=== PATIENT | male | born 1940 | race Asian ===

== ENCOUNTER 2020-09-01 14:47 | Inpatient (IN) | payer OTHER ==
--- OUTSIDE RECORDS SUMMARY | 2020-09-01 14:53 | XMS REPORT | Continuity of Care Document ---
:1940 Author Organization [facility] t Address [address] [place] [address] [place] [address] Care Team Providers Name Role Phone [phone] Primary Care Physician Unavailable SYSTEM, NOT IN Attending Clinician Unavailable MICHAELA Attending Clinician Unavailable Mandi JENKINS Attending Clinician Unavailable TINO BURT Attending Clinician Unavailable LATRICIA Attending Clinician Unavailable Mandi WORKMAN Attending Clinician Unavailable VACNE Attending Clinician Unavailable VIC Attending Clinician Unavailable TORIBIO Attending Clinician Unavailable WENDI Attending Clinician Unavailable HARRIET Attending Clinician Unavailable García SMITH Attending Clinician Unavailable MAGEN Attending Clinician Unavailable Ina ARGUETA Attending Clinician Unavailable BASSEM Attending Clinician Unavailable KIMMY SAMANO Attending Clinician Unavailable Tyree DELGADO Attending Clinician Unavailable PETERSON Attending Clinician Unavailable DUNOG Attending Clinician Unavailable BEAU Attending Clinician Unavailable HEIDY Attending Clinician Unavailable RAJINDER Attending Clinician Unavailable Mandi COLON Attending Clinician Unavailable MEJIA Attending Clinician Unavailable TINO BURT Admitting Clinician Unavailable Payers Payer Name Policy Type Policy Number Effective Date Expiration Date S pablo [facility] MEDICARE [id number] 2015 ADVANTAGE 00:00:00 Problems This patient has no known problems. Allergies, Adverse Reactions, Alerts This patient has no known allergies or adverse reactions. Medications This patient has no known medications. Vital Signs Vital Name Observation Time Observation Value Comments Source WEIGHT 2020-08-13 10:51:03 54.9 kg WEIGHT 2020-08-13 08:35:50 54.7 kg WEIGHT 2020-07-30 12:39:00 54.2 kg WEIGHT 2020-07-30 08:46:00 53.6 kg WEIGHT 2020-07-15 13:23:59 54.1 kg WEIGHT 2020-07-02 12:12:22 53.3 kg WEIGHT 2020-06-18 11:26:39 53.6 kg WEIGHT 2020-06-18 08:13:24 53 kg WEIGHT 2020-06-03 15:10:51 53.2 kg WEIGHT 2020-06-03 10:54:57 52.9 kg WEIGHT 2020-05-20 11:42:00 52.1 kg WEIGHT 2020-05-07 07:39:34 49.8 kg HEIGHT 2020-05-06 19:11:00 167 cm WEIGHT 2020-04-08 15:13:43 51.5 kg HEIGHT 2020-04-08 09:51:45 167 cm WEIGHT 2020-04-08 09:51:45 51.5 kg WEIGHT 2020-03-26 13:26:11 51.5 kg HEIGHT 2020-03-26 08:39:39 167 cm WEIGHT 2020-03-26 08:39:39 51.5 kg WEIGHT 2020-03-11 11:42:33 51.4 kg WEIGHT 2020-02-27 14:33:57 51.8 kg WEIGHT 2020-02-12 16:30:22 51.6 kg WEIGHT 2020-02-12 11:16:26 51.7 kg WEIGHT 2020-01-30 13:01:00 54.6 kg WEIGHT 2020-01-30 08:40:00 54.3 kg WEIGHT 2020-01-16 13:28:41 55.8 kg WEIGHT 2020-01-01 08:05:49 60.2 kg WEIGHT 2019-12-29 08:46:00 58.7 kg HEIGHT 2019-12-25 12:37:37 167 cm WEIGHT 2019-12-15 08:13:42 56.5 kg HEIGHT 2019-12-10 17:00:00 167 cm WEIGHT 2019-12-05 11:19:07 54.8 kg WEIGHT 2019-12-05 08:17:06 55.2 kg WEIGHT 2019-11-27 08:21:57 54.7 kg WEIGHT 2019-11-19 08:00:00 53.7 kg WEIGHT 2019-11-06 14:10:34 53.4 kg WEIGHT 2019-10-23 10:37:19 53.4 kg WEIGHT 2019-10-09 10:37:34 54.8 kg HEIGHT 2019-10-09 08:56:53 167 cm WEIGHT 2019-10-09 08:56:53 54 kg WEIGHT 2019-09-25 10:51:35 54 kg WEIGHT 2019-09-11 13:06:50 54.7 kg WEIGHT 2019-08-28 00:00:00 56 kg WEIGHT 2019-08-28 00:00:00 56 kg WEIGHT 2019-08-21 00:00:00 55.6 kg Procedures This patient has no known procedures. Encounters Start End Encounter Admission Attending Care Care Encounter Source Date/Time Date/Time Type Type Clinicians Facility Department ID 2020-01-22 Outpatient SYSTEM, MDA MDA [id number] 13:04:15 CARIE bragg 2020-08-27 2020-08-27 Outpatient JELANI JENNINGS, MDA MDA [id number] 09:14:23 23:59:00 JUVENAL bragg 2020-08-27 2020-08-27 Outpatient JELANI JENKINS, MDA MDA [id number] 07:48:18 11:03:21 KANA bragg 2020-08-27 2020-08-27 Outpatient JELANI JENKINS, MDA MDA [id number] 06:15:00 09:13:00 KANA bragg 2020-08-13 2020-08-13 Outpatient JELANI JENNINGS, MDA MDA [id number] 09:36:13 23:59:00 JUVENAL bragg 2020-08-13 2020-08-13 Outpatient JELANI JENKINS, MDA MDA [id number] 08:21:06 12:23:15 KANA bragg 2020-08-13 2020-08-13 Outpatient JELANI JENKINS, MDA MDA [id number] 06:15:00 09:35:00 KANA bragg 2020-07-30 2020-07-30 Outpatient JELANI JENNINGS, MDA MDA [id number] 09:00:00 23:59:00 JUVENAL bragg 2020-07-30 2020-07-30 Outpatient JELANI BURT, MDA MDA [id number] 08:42:59 10:52:59 KACY bragg 2020-07-30 2020-07-30 Outpatient JELANI JENKINS, MDA MDA [id number] 06:15:00 08:59:00 KANA bragg 2020-07-15 2020-07-15 Outpatient JELANI JENNINGS, MDA MDA [id number] 12:00:00 23:59:00 JUVENAL bragg 2020-07-15 2020-07-15 Outpatient REGINA SANFORD MDA MDA [id number] MD 10:40:50 12:06:04 Agus bragg 2020-07-15 2020-07-15 Outpatient REGINA SANFORD MDA MDA [id number] 10:52:13 11:59:00 Agus bragg 2020-07-15 2020-07-15 Outpatient JELANI BURT, MDA MDA [id number] MD 08:00:00 10:51:00 KACY bragg 2020-07-15 2020-07-15 Outpatient JELANI BURT, MDA MDA [id number] MD 08:24:11 08:24:11 KACY bragg 2020-07-02 2020-07-02 Outpatient JELANI JENNINGS, MDA MDA [id number] 10:12:30 23:59:00 JUVENAL bragg 2020-07-02 2020-07-02 Outpatient JELANI BURT, MDA MDA [id number] MD 08:29:20 11:45:52 KACY bragg 2020-07-02 2020-07-02 Outpatient JELANI BURT, MDA MDA [id number] MD 07:00:00 10:11:00 KACY bragg 2020-06-18 2020-06-18 Outpatient JELANI JENKINS, MDA MDA [id number] 09:01:37 23:59:00 KANA bragg 2020-06-18 2020-06-18 Outpatient JELANI BURT, MDA MDA [id number] MD 07:49:20 12:29:42 KACY bragg 2020-06-18 2020-06-18 Outpatient JELANI BURT, MDA MDA [id number] MD 07:00:00 09:00:00 KACY bragg 2020-06-03 2020-06-03 Outpatient JELANI JENNINGS, MDA MDA [id number] 14:14:13 23:59:00 JUVENAL bragg 2020-06-03 2020-06-03 Outpatient JELANI JENKINS, MDA MDA [id number] 09:47:36 14:13:00 KANA bragg 2020-06-03 2020-06-03 Outpatient JELANI BURT, MDA MDA [id number] MD 09:49:18 14:02:01 KACY bragg 2020-05-20 2020-05-20 Outpatient COATS-LU, MDA MDA [id number] 10:29:06 23:59:00 JUVENAL bragg 2020-05-20 2020-05-20 Outpatient JELANI JENKINS, MDA MDA [id number] 08:33:24 10:28:00 KANA bragg 2020-05-20 2020-05-20 Outpatient JELANI JENKINS, MDA MDA [id number] 08:33:04 08:33:04 KANA bragg 2020-05-06 2020-05-07 Outpatient ER JI, MDA Leukemia [id number] MD 09:22:00 16:00:00 SAURABH bragg 2020-05-07 2020-05-07 Outpatient JI, MDA MDA [id number] MD 00:15:52 00:28:43 SAURABH bragg 2020-05-06 2020-05-06 Outpatient JELANI BURT, MDA MDA [id number] MD 08:09:42 09:21:00 KACY bragg 2020-05-06 2020-05-06 Outpatient JAVED, MDA MDA [id number] MD 08:08:58 08:08:58 KACY bragg 2020-04-30 2020-04-30 Outpatient JAVED, MDA MDA [id number] MD 13:43:47 16:16:08 KACY bragg 2020-04-23 2020-04-23 Outpatient JOHNBLADE MDA MDA [id number] MD 10:49:43 23:59:00 Agus HAMLIN 2020-04-23 2020-04-23 Outpatient JAVED, MDA MDA [id number] MD 10:48:53 10:48:53 KACY bragg 2020-04-23 2020-04-23 Outpatient JELANI BURT, MDA MDA [id number] MD 06:15:00 10:48:00 KACY Goldsmith o n 2020-04-09 2020-04-09 Outpatient JELANI HO, MDA MDA [id number] MD 16:10:23 16:29:24 NIESHA Goldsmith o n 2020-04-08 2020-04-08 Outpatient ALICE, MDA MDA [id number] MD 14:10:47 23:59:00 KANA Goldsmith o n 2020-04-08 2020-04-08 Outpatient JELANI BURT, MDA MDA [id number] MD 09:46:47 14:25:12 KACY Goldsmith o n 2020-04-08 2020-04-08 Outpatient JELANI BURT, MDA MDA [id number] MD 08:22:16 14:09:00 KACY Goldsmith o n 2020-04-08 2020-04-08 Outpatient JAVED, MDA MDA [id number] MD 08:21:12 14:07:05 KACY Goldsmith o n 2020-04-08 2020-04-08 Outpatient JAVED, MDA MDA [id number] MD 08:21:55 08:21:55 KACY Goldsmith o n 2020-03-26 2020-03-26 Outpatient TORIBIO, MDA MDA [id number] MD 10:00:55 23:59:00 KAVITHA Rinaldi so n 2020-03-26 2020-03-26 Outpatient JAVED, MDA MDA [id number] MD 08:27:10 11:11:33 KACY Goldsmith o n 2020-03-26 2020-03-26 Outpatient JAVED, MDA MDA [id number] MD 07:30:00 09:59:00 KACY Goldsmith o yemi 2020-03-11 2020-03-11 Outpatient WENDI, MDA MDA [id number] MD 09:34:53 23:59:00 JOSE Goldsmith o yemi 2020-03-11 2020-03-11 Outpatient JAVED, MDA MDA [id number] MD 08:07:06 09:33:00 KACY Goldsmith o n 2020-03-11 2020-03-11 Outpatient EL JAVED, MDA MDA [id number] MD 08:07:34 08:07:34 KACY Morenoers o n 2020-02-27 2020-02-27 Outpatient EL HARRIET, MDA MDA [id number] MD 09:33:34 23:59:00 RESTORATIONIST Ande tasha bragg 2020-02-27 2020-02-27 Outpatient EL JAVED, MDA MDA [id number] 06:45:00 09:32:00 KACY Morenoers o n 2020-02-27 2020-02-27 Outpatient EL JAVED, MDA MDA [id number] 08:08:10 09:25:54 KACY Morenoers o yemi 2020-02-12 2020-02-12 Outpatient EL ALICE, MDA MDA [id number] MD 13:00:35 23:59:00 KANA bragg 2020-02-12 2020-02-12 Outpatient EL JAVED, MDA MDA [id number] 11:06:39 12:59:00 KACY Morenoers o n 2020-02-12 2020-02-12 Outpatient EL JAVED, MDA MDA [id number] 11:07:10 12:52:29 KACY Morenoers o yemi 2020-01-30 2020-01-30 Outpatient EL LUIS, MDA MDA [id number] MD 10:22:43 23:59:00 RUY bragg 2020-01-30 2020-01-30 Outpatient EL JAVED, MDA MDA [id number] 08:30:33 10:38:25 KACY Morenoers o yemi 2020-01-30 2020-01-30 Outpatient EL JAVED, MDA MDA [id number] 08:00:00 10:21:00 KACY Morenoers rosmery bragg 2020-01-16 2020-01-16 Outpatient EL OCTAVIO US MDA MDA [id number] 10:10:09 23:59:00 Agus rosmery bragg 2020-01-16 2020-01-16 Outpatient EL JOHN-BLADE MDA MDA [id number] 08:08:48 10:22:37 TTAgus HOLLOWAY 2020-01-16 2020-01-16 Outpatient EL JAVED, MDA MDA [id number] 07:00:00 10:09:00 KACY Agus o n 2020-01-04 2020-01-04 Outpatient JELANI ARGUETA, MDA MDA [id number] MD 14:28:58 23:59:00 EVELYN Goldsmith o n 2020-01-04 2020-01-04 Outpatient REGINA SANFORD MDA MDA [id number] 13:00:39 14:59:01 Agus rosmery bragg 2020-01-01 2020-01-01 Outpatient JELANI JENKINS, MDA MDA [id number] MD 07:15:00 23:59:00 KANA Agus o n 2020-01-01 2020-01-01 Outpatient EL JAVED, MDA MDA [id number] MD 07:15:45 09:49:32 KACY Agus o n 2019-12-25 2019-12-30 Inpatient UR BASSEM, MDA Leukemia [id number] MD 12:24:00 15:12:00 DONYA botello n 2019-12-25 2019-12-25 Outpatient EL ALICE, MDA MDA [id number] MD 07:30:00 12:23:00 KANA Agus o n 2019-12-25 2019-12-25 Outpatient EL JAVED, MDA MDA [id number] MD 10:13:21 10:13:21 KACY Agus o n 2019-12-25 2019-12-25 Outpatient EL JAVED, MDA MDA [id number] MD 09:34:34 09:34:34 KACY Agus o n 2019-12-25 2019-12-25 Outpatient EL ALICE, MDA MDA [id number] MD 07:46:17 07:46:17 KANA Agus o n 2019-12-10 2019-12-15 Inpatient UR [facility] MDA Leukemia [id number] MD 16:38:00 16:32:00 Agus SAMANO 2019-12-15 2019-12-15 Inpatient UR JAVED, MDA MDA [id number] MD 11:22:10 11:22:13 KACY Morenoers o n 2019-12-11 2019-12-11 Inpatient UR JAVED, MDA MDA [id number] MD 10:16:33 10:16:35 KACY Morenoers o n 2019-12-10 2019-12-10 Outpatient EL DELGADO, MDA MDA [id number] MD 14:29:21 16:37:00 PENELOPE Goldsmith o n 2019-12-10 2019-12-10 Outpatient EL GEPPNER, MDA MDA [id number] MD 09:30:00 14:28:00 KANA Goldsmith o n 2019-12-10 2019-12-10 Outpatient EL GEPPNER, MDA MDA [id number] MD 11:17:36 11:17:36 KANA Goldsmith o n 2019-12-10 2019-12-10 Outpatient EL DELGADO, MDA MDA [id number] MD 08:00:00 09:29:00 PENELOPE Goldsmith o n 2019-12-05 2019-12-05 Outpatient EL DAEATORA, MDA MDA [id number] MD 10:29:45 23:59:00 KAVITHA Rinaldi so yemi 2019-12-05 2019-12-05 Outpatient EL JAVED, MDA MDA [id number] MD 07:00:00 10:28:00 KACY Goldsmith o n 2019-12-05 2019-12-05 Outpatient EL JAVED, MDA MDA [id number] MD 08:08:08 10:04:42 KACY Morenoers o n 2019-12-04 2019-12-04 Outpatient EL JAVED, MDA MDA [id number] MD 00:00:00 00:00:00 KACY Goldsmith o n 2019-12-04 2019-12-04 Outpatient EL JAVED, MDA MDA [id number] MD 00:00:00 00:00:00 KACY Goldsmith o n 2019-11-27 2019-11-27 Outpatient EL GEPPNER, MDA MDA [id number] MD 12:49:39 23:59:00 KANA Goldsmith o yemi 2019-11-27 2019-11-27 Outpatient EL JOSE D WINKLER MDA MDA [id number] 07:15:00 12:48:00 Agus bragg 2019-11-27 2019-11-27 Outpatient EL GEPPNER, MDA MDA [id number] MD 10:13:30 10:13:30 KANA Goldsmith o n 2019-11-27 2019-11-27 Outpatient EL JAVED, MDA MDA [id number] MD 08:10:52 09:55:38 KACY Goldsmith o yemi 2019-11-20 2019-11-20 Outpatient JAVED, MDA MDA [id number] MD 00:00:00 00:00:00 KACY Agus o n 2019-11-20 2019-11-20 Outpatient JAVED, MDA MDA [id number] MD 00:00:00 00:00:00 KACY Agus o n 2019-11-12 2019-11-19 Inpatient ER MASAROVA, MDA Leukemia [id number] MD 10:11:00 17:45:00 LENORA Agus o n 2019-11-13 2019-11-13 [facility] MDA [id number] MD 12:10:28 12:42:16 LENORA Agus o n 2019-11-13 2019-11-13 Inpatient BEAU, MDA MDA [id number] MD 00:11:02 00:19:32 HENRRY Agus o n 2019-11-12 2019-11-12 Inpatient BEAU, MDA MDA [id number] MD 19:42:31 20:31:36 HENRRY Agus o n 2019-11-06 2019-11-06 Outpatient EL HEIDY, MDA MDA [id number] MD 11:01:28 23:59:00 AUSTINMEGA Camarena rso n 2019-11-06 2019-11-06 Outpatient EL JAVED, MDA MDA [id number] MD 07:38:12 11:00:00 KACY Agus o n 2019-11-06 2019-11-06 Outpatient EL JAVED, MDA MDA [id number] MD 07:37:50 07:37:50 KACY Agus o n 2019-10-23 2019-10-23 Outpatient EL ALDAER, MDA MDA [id number] MD 09:25:50 23:59:00 IMTIAZ Agus o n 2019-10-23 2019-10-23 Outpatient EL JAVED, MDA MDA [id number] MD 07:28:13 09:24:00 KACY Agus o n 2019-10-23 2019-10-23 Outpatient EL JAVED, MDA MDA [id number] MD 07:27:55 07:27:55 KACY Agus o n 2019-10-09 2019-10-09 Outpatient EL JAVED, MDA MDA [id number] MD 07:33:20 23:59:00 KACY Goldsmith o n 2019-10-09 2019-10-09 Outpatient JAVED, MDA MDA [id number] MD 07:33:42 11:35:48 KACY Morenoers o n 2019-10-09 2019-10-09 Outpatient JAVED, MDA MDA [id number] MD 08:09:20 10:33:22 KACY Morenoers o n 2019-10-08 2019-10-08 Outpatient JAVED, MDA MDA [id number] MD 07:15:48 07:15:48 KACY Morenoers o n 2019-10-08 2019-10-08 Outpatient JAVED, MDA MDA [id number] MD 07:01:34 07:06:05 KACY Morenoers o yemi 2019-09-25 2019-09-25 Outpatient COLON, MDA MDA [id number] MD 10:13:12 23:59:00 CORNELIUS Goldsmith o yemi 2019-09-25 2019-09-25 Outpatient JAVED, MDA MDA [id number] MD 07:42:08 10:12:00 KACY Morenoers o n 2019-09-25 2019-09-25 Outpatient JAVED, MDA MDA [id number] MD 07:42:24 07:42:24 KACY Goldsmith o yemi 2019-09-11 2019-09-11 Outpatient COATS-LU, MDA MDA [id number] MD 09:36:47 23:59:00 JUVENAL Goldsmith o yemi 2019-09-11 2019-09-11 Outpatient JAVED, MDA MDA [id number] MD 07:35:34 09:35:00 KACY Morenoers o yemi 2019-09-11 2019-09-11 Outpatient JAVED, MDA MDA [id number] MD 07:34:47 07:34:47 KACY Morenoers o yemi 2019-08-28 2019-08-28 [facility] MDA [id number] MD 09:30:46 23:59:00 KANA Goldsmith o yemi 2019-08-28 2019-08-28 Outpatient JAVED, MDA MDA [id number] MD 06:54:38 09:29:00 KACY Morenoers o n 2019-08-28 2019-08-28 Outpatient JELANI BURT SHORTY MDA [id number] 06:54:24 09:23:45 KACY bragg 2019-08-21 2019-08-21 Outpatient JELANI MAGEN, OCTAVIO MDA MDA [id number] 07:34:06 23:59:00 Agus bragg 2019-08-21 2019-08-21 Outpatient JELANI MAGENOCTAVIO AMBROCIO MDA MDA [id number] 07:33:48 07:33:48 Agus bragg 2019 2019 Outpatient JELANI BURT SHORTY MDA [id number] 06:49:41 08:49:00 KACY bragg 2019-07-09 2019-07-09 Outpatient JELANI JOSEPHGALLITO PALOMARES MDA MDA [id number] 09:38:49 09:38:49 Agus bragg Results This patient has no known results.
[2020-09-01 15:30] LABS: Urine Blood Trace-intact (Negative); Urine Glucose Negative (Negative); Urine Protein 3+ (Negative)
[2020-09-01] MEDS ORDERED: NA CHLORIDE 0.9% 2,000 ML ONE (15:38)
[2020-09-01 15:46] LABS: Urine Bacteria NONE SEEN /HPF (NONE SEEN)
[2020-09-01 15:50] LABS: ALT/SGPT 109 U/L (12-78); AST/SGOT 78 U/L (15-37); Albumin 3.6 g/dL (3.4-5.0); Alkaline Phosphatase 124 U/L (45-117); Amylase 95 U/L (25-115); BUN Blood Urea Nitrogen 26 mg/dL (7-18); Bicarbonate 22 mmol/L (21-32); Bilirubin Direct 0.1 mg/dL (0-0.2); Bilirubin Total 0.4 mg/dL (0.2-1.0); Creatine Phosphokinase 30 U/L (39-308); Glucose Level 143 mg/dL (74-106); Lipase 111 U/L (73-393); Potassium 3.8 mmol/L (3.5-5.1); Protein, Total 6.7 g/dL (6.4-8.2); Sodium Level 142 mmol/L (136-145); Troponin (Emerg Dept Use Only) < 0.02 ng/mL (0.0-0.045)
--- NOTE | 2020-09-01 15:51 | RAD REPORT ---
EXAM DESCRIPTION: RAD - Chest Single View - 09/01/2020 3:22 pm CLINICAL HISTORY: fever;Malaise COMPARISON: Two view chest May 2010 TECHNIQUE: AP portable chest image was obtained 09/01/2020 3:22 pm . FINDINGS: Lung volumes are low. Patchy opacification in each lung base, right greater than left, is probably low lung volume atelectasis. Minimal right base infiltrate is possible and needs correlation with exam findings. Failure and volume overload are not suspected. Heart and vasculature are normal. No measurable pleural effusion and no pneumothorax. No acute bony abnormality seen. No acute aortic findings suspected. IMPRESSION: Atelectasis versus minimal infiltrate right lung base.
[2020-09-01 15:52] LABS: CKMB Creatine Kinase MB < 1.0 ng/mL (1.0-3.6)
[2020-09-01 15:56] LABS: Protime INR 1.09
[2020-09-01 15:57] LABS: Absolute Lymphocytes (CBC) 0.4 K/uL (0.7-4.9); Basophils % 1.4 % (0-1.3); Lymphocytes % 25.8 % (15.3-44.8); MPV 9.8 fL (7.6-11.3); RBC Red Blood Cell Count 2.79 M/uL (4.33-5.43)
--- NOTE | 2020-09-01 16:37 | EDPHYS ---
Physician Documentation [facility] Name: María Maldonado Age: 80 yrs Sex: Male : 1940 Arrival Date: 09/01/2020 Time: 14:49 Bed 3 Private MD: ED Physician Leonard Elizondo HPI: 09/01 16:26 This 80 yrs old Male presents to ER via EMS with complaints of Fever. abimael 16:26 The patient reports fever, that was measured at 100.4 degrees Fahrenheit. Onset: The abimale symptoms/episode began/occurred 2 day(s) ago. Modifying factors: there are no obvious modifying factors. Associated signs and symptoms: Pertinent positives: cough, runny nose, sinus congestion, shortness of breath. Severity of symptoms: At their worst the symptoms were mild yesterday, in the emergency department the symptoms are unchanged. The patient has not experienced similar symptoms in the past. Historical: - Allergies: 14:54 No Known Allergies; tw2 - Home Meds: 14:56 metoprolol succinate 50 mg oral CSpX 1 cap twice a day [Active]; nifedipine 60 mg Oral tw2 TbER 1 tab once daily [Active]; ruxolitinib 20 mg oral tab 1 tab 2 times per day [Active]; - PMHx: 14:56 hypertension; tw2 16:18 MDS; tw2 - Immunization history:: Adult Immunizations. - Social history:: Smoking status: . - Family history:: not pertinent. ROS: 16:26 Eyes: Negative for injury, pain, redness, and discharge, ENT: Negative for injury, abimael pain, and discharge, Neck: Negative for injury, pain, and swelling, Cardiovascular: Negative for chest pain, palpitations, and edema, Abdomen/GI: Negative for abdominal pain, nausea, vomiting, diarrhea, and constipation, Back: Negative for injury and pain, MS/Extremity: Negative for injury and deformity, Skin: Negative for injury, rash, and discoloration, Neuro: Negative for headache, weakness, numbness, tingling, and seizure, Psych: Negative for depression, anxiety, suicide ideation, homicidal ideation, and hallucinations, Allergy/Immunology: Negative for hives, rash, and allergies, Endocrine: Negative for neck swelling, polydipsia, polyuria, polyphagia, and marked weight changes, Hematologic/Lymphatic: Negative for swollen nodes, abnormal bleeding, and unusual bruising. 16:26 Constitutional: Positive for body aches, chills, fatigue, fever. 16:26 Cardiovascular: Positive for palpitations. 16:26 Respiratory: Positive for cough. 16:26 : Positive for urinary symptoms, urinary frequency, small amounts. 16:26 Skin: Positive for pallor. Exam: 16:26 Head/Face: Normocephalic, atraumatic. Eyes: Pupils equal round and reactive to light, abimael extra-ocular motions intact. Lids and lashes normal. Conjunctiva and sclera are non-icteric and not injected. Cornea within normal limits. Periorbital areas with no swelling, redness, or edema. ENT: Nares patent. No nasal discharge, no septal abnormalities noted. Tympanic membranes are normal and external auditory canals are clear. Oropharynx with no redness, swelling, or masses, exudates, or evidence of obstruction, uvula midline. Mucous membranes moist. Neck: Trachea midline, no thyromegaly or masses palpated, and no cervical lymphadenopathy. Supple, full range of motion without nuchal rigidity, or vertebral point tenderness. No Meningismus. Chest/axilla: Normal chest wall appearance and motion. Nontender with no deformity. No lesions are appreciated. Abdomen/GI: Soft, non-tender, with normal bowel sounds. No distension or tympany. No guarding or rebound. No evidence of tenderness throughout. Back: No spinal tenderness. No costovertebral tenderness. Full range of motion. MS/ Extremity: Pulses equal, no cyanosis. Neurovascular intact. Full, normal range of motion. Neuro: Awake and alert, GCS 15, oriented to person, place, time, and situation. Cranial nerves II-XII grossly intact. Motor strength 5/5 in all extremities. Sensory grossly intact. Cerebellar exam normal. Normal gait. Psych: Awake, alert, with orientation to person, place and time. Behavior, mood, and affect are within normal limits. 16:26 Constitutional: The patient appears febrile. 16:26 Cardiovascular: Rate: tachycardic, Rhythm: regular, Heart sounds: normal, Edema: is not appreciated, JVD: is not appreciated. 16:26 Respiratory: mild respiratory distress is noted, Respirations: no acute changes, is not noted, Breath sounds: decreased breath sounds, that are mild, rhonchi, that are mild, Respiratory rate: 28 16:26 Abdomen/GI: Inspection: abdomen appears normal, Bowel sounds: normal, Palpation: abdomen is soft and non-tender, Liver: no appreciated palpable abnormalities, Hernia: not appreciated. 16:36 ECG was reviewed by the Attending Physician. [facility] Vital Signs: 14:51 BP 141 / 60; Pulse 95; Resp 20; Temp 100.3; Pulse Ox 98% on 3 lpm NC; tw2 15:11 Weight 61.23 kg (R); Height 5 ft. 7 in. (170.18 cm); tw2 16:17 BP 124 / 92; Pulse 102; Resp 28; Pulse Ox 100% on 2 lpm NC; tw2 17:05 BP 133 / 56; Pulse 99; Resp 19; Pulse Ox 95% on 2 lpm NC; tw2 17:57 Temp 100.5(O); tw2 20:00 Pulse 112; Resp 16; Temp 99.8(O); Pulse Ox 96% on 2 lpm NC; Pain 0/10; bs2 15:11 Body Mass Index 21.14 (61.23 kg, 170.18 cm) tw2 MDM: 15:12 Patient medically screened. [facility] 16:30 Differential diagnosis: viral Infection, bacterial infection, URI, pneumonia UTI. Data [facility] reviewed: vital signs, nurses notes, lab test result(s), EKG, radiologic studies, CT scan, plain films. Data interpreted: community engagement specialist: rate is 102 beats/min, rhythm is regular, Pulse oximetry: on room air is 100 %. Test interpretation: by ED physician or midlevel provider: ECG, plain radiologic studies. Counseling: I had a detailed discussion with the patient and/or guardian regarding: the historical points, exam findings, and any diagnostic results supporting the discharge/admit diagnosis, lab results, radiology results. 19:38 Physician consultation: Anuj Diaz and will see patient in ED, ASKED , CANCEL abimael TRANSFUSIONS, DR DIAZ SAID HE WILL COORDINATE WITH DR CHAIREZ. 09/01 15:04 Order name: Amylase, Serum 09/01 15:04 Order name: Basic Metabolic Panel 09/01 15:04 Order name: Blood Culture Adult (2) 09/01 15:04 Order name: CBC with Diff 09/01 15:04 Order name: CPK; Complete Time: 16:12 09/01 15:04 Order name: Ckmb; Complete Time: 16:12 09/01 15:04 Order name: LFT's; Complete Time: 16:12 09/01 15:04 Order name: Lactate; Complete Time: 16:12 09/01 15:04 Order name: Lipase; Complete Time: 16:12 09/01 15:04 Order name: Procalcitonin; Complete Time: 18:50 09/01 15:04 Order name: Protime (+inr); Complete Time: 16:12 09/01 15:04 Order name: Ptt, Activated; Complete Time: 16:12 09/01 15:04 Order name: Troponin (emerg Dept Use Only); Complete Time: 16:12 09/01 15:04 Order name: Urine Microscopic Only; Complete Time: 16:12 09/01 15:05 Order name: Amylase; Complete Time: 16:12 EDUT 09/01 15:05 Order name: Basic Metabolic Panel; Complete Time: 16:12 EDUT 09/01 15:05 Order name: Blood Culture [facility] 09/01 15:24 Order name: Glucose, Ancillary Testing; Complete Time: 16:12 EDUT 09/01 15:30 Order name: Urine Dipstick-Ancillary [facility] 09/01 16:14 Order name: Type And Screen [facility] 09/01 16:27 Order name: Flu 1 09/01 16:27 Order name: Strep em1 09/01 16:37 Order name: COVID-19/FLU A+B; Complete Time: 18:50 EDUT 09/01 16:42 Order name: Manual Differential [facility] 09/01 16:44 Order name: SARS-COV-2 RT PCR; Complete Time: 18:50 EDUT 09/01 18:51 Order name: CDIFF [facility] 09/01 18:51 Order name: Stool Culture [facility] 09/01 18:51 Order name: Fecal Leukocyte Stain [facility] 09/01 15:04 Order name: Chest Single View XRAY; Complete Time: 16:12 09/01 15:04 Order name: Accucheck; Complete Time: 15:13 09/01 15:04 Order name: Cardiac monitoring; Complete Time: 15:13 09/01 15:04 Order name: EKG - Nurse/Tech; Complete Time: 15:13 09/01 15:04 Order name: IV Saline Lock - Large Bore; Complete Time: 15:13 iw 09/01 15:04 Order name: Labs collected and sent; Complete Time: 15:13 iw 09/01 15:04 Order name: O2 Per Protocol; Complete Time: 15:13 iw 09/01 15:04 Order name: O2 Sat Monitoring; Complete Time: 15:13 iw 09/01 15:04 Order name: Urine Dipstick-Ancillary (obtain specimen); Complete Time: 15:33 iw 09/01 16:38 Order name: Bladder Scanner: NOTE PVR abimael 09/01 18:51 Order name: Occult Blood abimael 09/01 19:14 Order name: Lactate Sepsis 2 HR Follow-up; Complete Time: 19:35 EDMS 09/01 19:38 Order name: CT Chest Abdomen Pelvis W/O Contrast: NO IV NO ORAL abimael 09/01 19:39 Order name: IV Saline Lock - Large Bore [facility] 09/01 20:05 Order name: Occult Blood EDMS 09/01 20:27 Order name: CT EDMS EC:36 Rate is 90 beats/min. Rhythm is regular. QRS [place] is Normal. AR interval is normal. QRS abimael interval is normal. QT interval is normal. No Q waves. T waves are Normal. No ST changes noted. Clinical impression: NSR w/ Non-specific ST/T Changes and No evidence of ischemia. Interpreted by me. Reviewed by me. Administered Medications: 15:20 Drug: NS 0.9% (30 ml/kg) 30 ml/kg Route: IV; Rate: bolus; Site: right wrist; tw2 18:35 Follow up: Response: No adverse reaction; IV Status: Completed infusion; IV Intake: tw2 2000ml 16:44 Drug: Pepcid (famotidine) 20 mg Route: IVP; Site: right wrist; tw2 17:10 Follow up: Response: No adverse reaction tw2 16:45 Drug: vancoMYCIN 1 grams Route: IVPB; Infused Over: 2 hrs; Site: right wrist; tw2 16:45 Drug: Tylenol 650 mg Route: PO; tw2 18:32 Follow up: Response: No adverse reaction tw2 17:05 Drug: Cefepime 2 grams {Note: IVP available only.} Route: IVPB; Rate: 200 ml/hr; tw2 Infused Over: 5 mins; Site: left wrist; 17:11 Follow up: Response: No adverse reaction; IV Status: Completed infusion; IV Intake: [id number] Disposition Summary: 09/01/20 16:36 Hospitalization Ordered Hospitalization Status: Inpatient Admission abimael Location: Telemetry/[facility] (Inpatient) abimael Condition: Fair abimael Problem: new abimael Symptoms: have improved abimael Bed/Room Type: Standard abimael Provider: Anuj Diaz(09/01/20 16:41) abimael Room Assignment: [facility](09/01/20 18:30) dw Diagnosis - Fever, unspecified abimael - Neutropenia, unspecified - MDS abimael - Anemia, unspecified abimael - Thrombocytopenia, unspecified abimael - Unspecified bacterial pneumonia - RIGHT LOWER abimael - Diarrhea, unspecified abimael - Severe sepsis without septic shock abimael Forms: - Medication Reconciliation Form abimael - SBAR form abimael Signatures: Dispatcher [employer] EDMS Lucille Rushing RN RN dw Anderson, Corey, MD MD cha Williams, Irene, RN RN iw Shama Cobb RN RN tw2 Corrections: (The following items were deleted from the chart) 15:41 15:27 CORONAVIRUS+MR.LAB.BRZ ordered. EDUT EDMS 16:41 16:36 Fadi Velazquez [facility] 16:42 16:38 Blood Transfusion Consent ordered. [facility] 16:45 16:25 CORONAVIRUS+MR.LAB.BRZ ordered. EDUT EDMS 18:30 16:36 abimael dw
--- NOTE | 2020-09-01 16:37 | ER ---
Nurse's Notes [facility] Name: María Maldonado Age: 80 yrs Sex: Male : 1940 Arrival Date: 09/01/2020 Time: 14:49 Bed 3 Private MD: Diagnosis: Fever, unspecified;Neutropenia, unspecified-MDS;Anemia, unspecified;Thrombocytopenia, unspecified;Unspecified bacterial pneumonia-RIGHT LOWER;Diarrhea, unspecified;Severe sepsis without septic shock Presentation: 09/01 14:51 Chief complaint: EMS states: reports that pt has not been eating or drinking for a tw2 few days, today began running fever and having chills. TMAX at home 103 while bundled in blankets, also c/o nausea w/ "dry heaves". Spo2 88% on RA, improved to 98% on 3L NC. Coronavirus screen: chills, fatigue, fever, vomiting. Client presents with at least one sign or symptom that may indicate coronavirus-19. Standard/surgical mask placed on the client. Ebola Screen: No symptoms or risks identified at this time. Initial Sepsis Screen: Does the patient meet any 2 criteria? No. Patient's initial sepsis screen is negative. Does the patient have a suspected source of infection? No. Patient's initial sepsis screen is negative. Risk Assessment: Do you want to hurt yourself or someone else? Patient reports no desire to harm self or others. 14:51 Method Of Arrival: EMS tw2 14:53 Onset of symptoms was September 01, 2020. tw2 14:53 Acuity: GRICELDA 3 tw2 Historical: - Allergies: 14:54 No Known Allergies; tw2 - Home Meds: 14:56 metoprolol succinate 50 mg oral CSpX 1 cap twice a day [Active]; nifedipine 60 mg Oral tw2 TbER 1 tab once daily [Active]; ruxolitinib 20 mg oral tab 1 tab 2 times per day [Active]; - PMHx: 14:56 hypertension; tw2 16:18 MDS; tw2 - Immunization history:: Adult Immunizations. - Social history:: Smoking status: . - Family history:: not pertinent. Screenin:07 Abuse screen: Denies threats or abuse. Nutritional screening: No deficits noted. tw2 Tuberculosis screening: No symptoms or risk factors identified. Fall Risk Secondary diagnosis (15 points) impaired mobility. Assessment: 14:50 General: Appears ill, Behavior is calm, cooperative, appropriate for age. Pain: Denies tw2 pain. Neuro: Level of Consciousness is awake, alert, obeys commands, Oriented to person, place, situation. Cardiovascular: Patient's skin is warm and dry. Respiratory: Airway is patent Respiratory effort is even, unlabored, Respiratory pattern is regular, symmetrical. GI: No signs and/or symptoms were reported involving the gastrointestinal system. : No signs and/or symptoms were reported regarding the genitourinary system. Urine is dark colored akash urine noted. Musculoskeletal: Range of motion: intact in all extremities. 15:14 Reassessment: pts son SEAN MALDONADO ph#[phone] Fatou Churchill at [address] ph#[phone] and has seen their team for past 8-10 years and has some form of a blood disorder like leukemia but he is not sure of the name and gets transfusion every 2 weeks or so. 17:40 Reassessment: pt has voided 3 times prior to bladder scan order, will scan once pt 2 urinates again, provider notified. Vital Signs: 14:51 BP 141 / 60; Pulse 95; Resp 20; Temp 100.3; Pulse Ox 98% on 3 lpm NC; tw2 15:11 Weight 61.23 kg (R); Height 5 ft. 7 in. (170.18 cm); tw2 16:17 BP 124 / 92; Pulse 102; Resp 28; Pulse Ox 100% on 2 lpm NC; tw2 17:05 BP 133 / 56; Pulse 99; Resp 19; Pulse Ox 95% on 2 lpm NC; tw2 17:57 Temp 100.5(O); tw2 20:00 Pulse 112; Resp 16; Temp 99.8(O); Pulse Ox 96% on 2 lpm NC; Pain 0/10; bs2 15:11 Body Mass Index 21.14 (61.23 kg, 170.18 cm) tw2 ED Course: 14:49 Patient arrived in ED. tw2 14:51 Bed in low position. Call light in reach. Adult w/ patient. athletic monitor on. Pulse tw2 ox on. NIBP on. 14:54 Triage completed. tw2 14:54 Arm band placed on Patient placed in an exam room. tw2 14:55 Shama Cobb, BRANDI is Primary Nurse. tw2 15:11 Leonard Elizondo MD is Attending Physician. abimael 15:22 Chest Single View XRAY In Process Unspecified. EDMS 15:33 Urine Microscopic Only Sent. tw2 16:32 Fadi Velazquez MD is Hospitalizing Provider. abimael 16:41 Anuj Onofre is Hospitalizing Provider. abimael 19:15 Report given to BRANDI [place] and BRANDI Romano. tw2 19:58 No provider procedures requiring assistance completed. Inserted saline lock: 20 gauge bs2 in left forearm, using aseptic technique. 19:59 Patient admitted, IV remains in place. bs2 19:59 CT Chest Abdomen Pelvis W/O Contrast: NO IV NO ORAL Sent. bs2 19:59 Amylase, Serum Sent. bs2 19:59 Basic Metabolic Panel Sent. bs2 19:59 Blood Culture Adult (2) Sent. bs2 Administered Medications: 15:20 Drug: NS 0.9% (30 ml/kg) 30 ml/kg Route: IV; Rate: bolus; Site: right wrist; tw2 18:35 Follow up: Response: No adverse reaction; IV Status: Completed infusion; IV Intake: tw2 2000ml 16:44 Drug: Pepcid (famotidine) 20 mg Route: IVP; Site: right wrist; tw2 17:10 Follow up: Response: No adverse reaction tw2 16:45 Drug: vancoMYCIN 1 grams Route: IVPB; Infused Over: 2 hrs; Site: right wrist; tw2 16:45 Drug: Tylenol 650 mg Route: PO; tw2 18:32 Follow up: Response: No adverse reaction tw2 17:05 Drug: Cefepime 2 grams {Note: IVP available only.} Route: IVPB; Rate: 200 ml/hr; tw2 Infused Over: 5 mins; Site: left wrist; 17:11 Follow up: Response: No adverse reaction; IV Status: Completed infusion; IV Intake: [id number] Intake: 17:11 IV: 10ml; Total: 10ml. tw2 18:35 IV: 2000ml; Total: 2010ml. tw2 Outcome: 16:36 Decision to Hospitalize by Provider. abimael 19:55 Admitted to bs2 19:55 Condition: stable 19:57 Admitted to Tele accompanied by nurse, via stretcher, room 406, with chart, Report bs2 called to RN for 406 20:41 Patient left the ED. bs2 Signatures: Dispatcher [employer] Leonard Guerrero MD MD cha Wise, Tara, RN RN Nancie Schuler bs2
[2020-09-01 16:43] LABS: Anisocytosis 1+; Blood Morphology Comment NOTED (NOT SEEN); Platelet Estimate ADEQ; Polychromasia 1+
[2020-09-01] MEDS ORDERED: ACETAMINOPHEN 325 MG TABLET ONE (16:54)
[2020-09-01] MEDS ORDERED: FAMOTIDINE 20 MG/2 ML VIAL IV ONE (16:54)
[2020-09-01] MEDS ORDERED: VANCOMYCIN/NS 1 gm 1 GM/250 ML BAG IVPB ONE (17:00)
[2020-09-01] MEDS ORDERED: CEFEPIME/SWI 2gm 2 GM/20 ML SYR IVP ONE (17:00)
--- NOTE | 2020-09-01 18:06 | P.HP ---
Certification for Inpatient Patient admitted to: Inpatient With expected LOS: >2 Midnights Practitioner: I am a practitioner with admitting privileges, knowledge of patient current condition, hospital course, and medical plan of care. Services: Services provided to patient in accordance with Admission requirements found in Title 42 Section 412.3 of the Code of Federal Regulations Patient History Date of Service: 09/01/20 Reason for admission: Fever and chills History of Present Illness: 80-year-old gentleman with a history of myelodysplastic syndrome was brought to the emergency department due to an episode of fever and chills at home. Per report patient has not been eating well for the past 4 days, and has been experiencing nausea and vomiting. No diarrhea reported. Blood work done in the emergency department demonstrates pancytopenia-all cell lines- neutropenia, with absolute neutrophil count of 500, anemia with hemoglobin of 7.6 and thrombocytopenia. Per report patient gets transfuse every 2 weeks. Chest x-ray demonstrated atelectasis versus minimal infiltrate. UA is negative for UTI. Patient not able to provide any history. He is admitted for further management. Allergies No Known Allergies Allergy (Unverified 09/01/20 18:40) - Past Medical/Surgical History -: Myelodysplastic syndrome -: Hypertension - Social History Alcohol use: No Place of Residence: Home Review of Systems is unable to be obtained Physical Examination - Physical Exam General: In no apparent distress, Cachectic, Confused, Other (Awake) HEENT: Atraumatic, Normocephalic, PERRLA, Mucous membr. moist/pink, Sclerae nonicteric Neck: Supple, 2+ carotid pulse no bruit, JVD not distended, No Thyromegaly Respiratory: Clear to auscultation bilaterally, Normal air movement Cardiovascular: No edema, Other (Tachycardia, regular rhythm) Gastrointestinal: Normal bowel sounds, Soft and benign, No tenderness Musculoskeletal: No swelling Integumentary: No erythema Neurological: Normal speech, Other (No focal motor deficit.) Lymphatics: No axilla or inguinal lymphadenopathy - Studies Laboratory Data (last 24 hrs) 09/01/20 15:20: PT 12.6 H, INR 1.09, APTT 27.6 09/01/20 15:20: WBC 1.40 L*, Hgb 7.8 L, Hct 23.0 L, Plt Count 136 L 09/01/20 15:20: Sodium 142, Potassium 3.8, BUN 26 H, Creatinine 1.09, Glucose 143 H, Total Bilirubin 0.4, AST 78 H, ALT 109 H, Alkaline Phosphatase 124 H, Amylase 95, Lipase 111 Assessment and Plan - Problems (Diagnosis) (1) Neutropenic fever Current Visit: Yes Status: Acute (2) Pneumonia Current Visit: Yes Status: Acute (3) Sepsis Current Visit: Yes Status: Acute (4) Myelodysplastic syndrome Current Visit: Yes Status: Acute - Plan Admit to the medical floor. UA with no evidence of UTI. Start broad-spectrum antibiotics-IV cefepime and vancomycin. Monitor CBC to follow WBC and platelet. PRBC transfusion p.r.n. for hemoglobin less than 7. Consult to hematology. Aggressive hydration with normal saline. Follow blood cultures. - Advance Directives Does patient have a Living Will: No Does patient have a Durable POA for Healthcare: No
[2020-09-01] MEDS ORDERED: NA CHLORIDE 0.9% 1,000 ML IV ONE (19:20)
--- NOTE | 2020-09-01 19:22 | P.INFCA ---
Sepsis Focused Assessment - Sepsis Screen Result Severe Sepsis: Positive Septic Shock: Negative - Evaluation Current stage of sepsis: Severe sepsis - Vital Signs Reviewed: Yes Temperature: 99.4 F Heart rate: 77 Blood Pressure: 104/61 Respiratory Rate: 21 O2 Sat by Pulse Oximetry: 95 - Examination Date exam was performed: 09/01/20 Time exam was performed: 19:10 Heart: Regular rate/rhythm, S1, S2 Lungs: Clear bilaterally Peripheral pulses: 2+ Slightly diminished Peripheral pulse location: Radial Capillary refill: <2 Seconds Skin examination: Not mottled
--- NOTE | 2020-09-01 20:26 | RAD REPORT ---
EXAM DESCRIPTION: CT - Chest Abd Pelvis Wo Con - 09/01/2020 7:53 pm CLINICAL HISTORY: DIARRHEA;Cough COMPARISON: COLON BARIUM ENEMA W AIR CONTRAST dated 05/24/2010; CHEST PA AND LAT 2 VIEW dated 05/23/19 11 TECHNIQUE: Axial 5 millimeter thick images of the chest, abdomen and pelvis were obtained without IV contrast. Oral contrast was administered. All CT scans are performed using dose optimization technique as appropriate and may include automated exposure control or mA/KV adjustment according to patient size. FINDINGS: No mass the lung parenchyma. No focal consolidation to suspect bacterial pneumonia. Diffus e interstitial opacification is present. This is mostly fibrosis. Superimposed interstitial infiltrat e or edema are both possible as well. Cardiomegaly is present without pericardial effusion. No pneumo thorax or pleural effusion. No chest wall mass or abnormal axillary lymphadenopathy seen. Mediastin al and hilar regions show no mass or lymphadenopathy. Hepatosplenomegaly is present. Spleen is 19 cm in craniocaudal dimension. No pancreatic abnormality s een. Gallbladder and biliary tree are normal. No hydronephrosis or suspicious renal mass. Isodense masses and pyelonephritis cannot be excluded on non contrast imaging. No adrenal abnormalities. No obstructing or nonobstructing calculi. Well fille d urinary bladder shows no suspicious findings. No gastric dilatation or wall thickening. Small bowel loops are not dilated but multiple small bowel loops show evidence for mild wall thickening or edema. Colon is decompressed with little bowel conten t present. Martinez of the rectum are mildly prominent and there is congestion in the perirectal fat. No colon mass identified. No free air, free fluid or pneumatosis. No hernia, mass or bulky lymphadenopathy. The skeleton is abnormal. There is thickened trabecular pattern throughout all bony structures. No ly tic or destructive process seen. The pattern is nonspecific and no additional history is available. D ifferential considerations include metabolic thyroid and parathyroid disease, renal osteodystrophy, m yelofibrosis and Paget's disease. Sickle cell anemia is a possibility that is unlikely for this patie nt. Lymphoma is a differential consideration. IMPRESSION: Diffuse interstitial opacification that could be fibrosis, interstitial edema, interstit ial infiltrate or a combination. No focal consolidation to suspect bacterial pneumonia. Wall thickening and edema are seen in the small bowel and colon with bowel dilation or focal mass. No nspecific enteritis would be a consideration. Hepatosplenomegaly with increased trabecular thickening throughout the entirety of the skeleton. Diff erential considerations are detailed above. Myelofibrosis would be a primary consideration.No additio nal history detailed regarding any known metabolic or myeloproliferative disorders.
[2020-09-01] MEDS: NA CHLORIDE 0.9% 500 ML IV ONE ×2 (21:21)
[2020-09-01] MEDS ORDERED: CEFEPIME 1 GM/VIAL IV SCH (21:21)
[2020-09-01] MEDS ORDERED: ONDANSETRON 4 MG/2 ML VIAL IV PRN (21:21)
[2020-09-01] MEDS: NA CHLORIDE 0.9% 1,000 ML IV SCH (21:21)
[2020-09-01] MEDS: VANCOMYCIN 1.5 GM in NA CHLORIDE 0.9% 500 ML IVPB SCH (21:21)
[2020-09-01] MEDS ORDERED: ACETAMINOPHEN 500 MG TAB PO PRN (21:21)
[2020-09-01 22:18] VITALS: BMI 21.1
[2020-09-02] MEDS ORDERED: NA CHLORIDE 0.9% 100 ML ONE (02:59)
[2020-09-02] MEDS: NA CHLORIDE 0.9% 1,000 ML IV SCH ×3 (05:21→09:25)
[2020-09-02 06:03] LABS: MPV 11.1 fL (7.6-11.3); RBC Red Blood Cell Count 2.33 M/uL (4.33-5.43)
[2020-09-02 06:11] LABS: Protime INR 1.76
[2020-09-02 06:13] LABS: Hematocrit 19.6 % (39.6-49.0)
[2020-09-02 06:21] LABS: Magnesium 1.6 mg/dL (1.8-2.4); Phosphorus 4.3 mg/dL (2.5-4.9); Potassium 3.8 mmol/L (3.5-5.1)
[2020-09-02 07:06] LABS: Anisocytosis 1+; Blood Morphology Comment NOTED (NOT SEEN); Platelet Estimate DECR; Platelets, Giant MANY; Polychromasia 1+
[2020-09-02] MEDS: NA CHLORIDE 0.9% 500 ML IV ONE (08:35)
[2020-09-02] MEDS ORDERED: NA CHLORIDE 0.9% 500 ML ONE (08:55)
[2020-09-02] MEDS ORDERED: NA CHLORIDE 0.9% 1,000 ML ONE ×4 (08:55→22:47)
[2020-09-02] MEDS ORDERED: MAGNESIUM SULFATE 1 gm IVPB 1 GM/100 ML BAG IV ONE ×2 (09:00→09:44)
[2020-09-02] MEDS ORDERED: POTASSIUM CL SA 10 MEQ TAB PO ONE ×2 (09:00→09:44)
[2020-09-02 09:18] LABS: Hematocrit 19.3 % (39.6-49.0)
[2020-09-02] MEDS: CEFEPIME/SWI 1gm 10 ML IV SCH ×2 (09:26→20:47)
[2020-09-02] MEDS ORDERED: ACETAMINOPHEN 500 MG TAB ONE (10:12)
[2020-09-02 11:57] LABS: C.diff Antigen/Toxin Ag pos : Tox pos (NEG : NEG)
[2020-09-02] MEDS ORDERED: NOREPINEPHRINE 4 MG in D5W 250 ML IV PRN (12:12)
[2020-09-02] MEDS ORDERED: propofoL 1,000 MG/100 ML VIAL IV PRN (12:31)
[2020-09-02] MEDS ORDERED: MIDAZOLAM HCL 2 MG/2 ML INJ IV PRN (12:31)
[2020-09-02] MEDS ORDERED: FENTANYL CITR 100 MCG/2 ML IV PRN (12:31)
[2020-09-02] MEDS ORDERED: RSI MEDICATION KIT IV ONE (12:44)
--- NOTE | 2020-09-02 12:47 | P.CNS ---
Date of Consult: 09/02/20 PC: I was asked to see this 80-year-old male on an emergent basis due to lack of vascular access. HPC: Patient apparently has mild dysplasia disorder. He has been at home for the last 4 days. He has been sick strain that time with nausea vomiting. He began to run temperature and fever and was brought to the ER for evaluation. PMH: No pacemaker SOC: No allergies SYS REVIEW: O/E ill confused man hypotensive and tachycardic at the moment. HEENT: Nonicteric Chest: No evidence of any clavicular fractures LOCO: DATA: IMPRESSION: Patient appears to be septic, requires vascular access and a more most likely be intubated. PLAN: I will place a left subclavian line. The family of indicated they want everything done.
--- NOTE | 2020-09-02 12:51 | P.OP ---
Date of Service: 09/02/20 Prep diagnosis: Lack of vascular access Postop diagnosis: The same Surgeon's name: Mauri Procedure: Insertion of left subclavian catheter Findings and Operative Technique In the ICU bed, the patient was positioned with a roll between his shoulders. The left subclavian area was prepped with a DuraPrep solution, injected 1% lid ocaine, and the patient was then placed in mild Trendelenburg. A finer needle was used to cannulate the left subclavian vein. The guidewire was passed down through the needle. It was dilated up using 1 dilator. The central line was now passed over the guidewire using a modified Seldinger technique. The catheter was sutured in place. It was then flushed with a heparin saline solution. Sutures were used to secure it in place and a sterile dressing was applied. At the end of procedure the patient was stable with bilateral breath sounds. Estimated blood loss: Less than 10 cc
[2020-09-02 12:59] LABS: Arterial Blood Carboxyhemoglob 0.4 % (0-1.5); Blood Gas Oxyhemoglobin 96.2 % (94-97); Blood O2 Saturation 97.9 % (92-98.5)
[2020-09-02] MEDS ORDERED: HALOPERIDOL LACT 5 MG/ML INJ IV PRN (13:13)
--- NOTE | 2020-09-02 13:24 | RAD REPORT ---
EXAM DESCRIPTION: Roland Single View09/02/2020 12:54 pm CLINICAL HISTORY: Device placement/central venous catheter placement IMPRESSION: Central venous catheter with its tip in the superior vena cava No pneumothorax Endotracheal tube has its tip at the level of the mid aortic arch
[2020-09-02] MEDS ORDERED: SOD BICARB 8.4% PEDI 10 mEq/10 mL SYR IVP ONE (13:27)
[2020-09-02] MEDS: HALOPERIDOL LACT 5 MG/ML INJ IV PRN ×2 (13:49→17:20)
[2020-09-02] MEDS ORDERED: NOREPINEPHRINE 8 MG in Dextrose 5%-Water 500 ML IV PRN (14:00)
[2020-09-02] MEDS ORDERED: HALOPERIDOL LACT 5 MG/ML INJ ONE ×2 (14:02→17:40)
[2020-09-02] MEDS ORDERED: D5W 1,000 ML with NA BICARB 8.4% 150 MEQ IV SCH ×2 (15:00)
[2020-09-02] MEDS ORDERED: TBO-FILGRASTIM 480 MCG/0.8 ML SYR SQ SCH (15:00)
[2020-09-02] MEDS ORDERED: SUCCINYLCHOLINE 20 MG/ML (10 ML) IV ONE (15:34)
[2020-09-02] MEDS ORDERED: ETOMIDATE 20 MG/10 ML VIAL IV ONE (15:34)
--- NOTE | 2020-09-02 16:18 | P.CNS ---
Date of Consult: 09/02/20 Reason for Consult: JULISA Requesting Physician: florence sung Chief Complaint: Fever and chills History of Present Illness: 80-year-old gentleman with a history of myelodysplastic syndrome was brought to the emergency department due to an episode of fever and chills at home. Per report patient has not been eating well for the past 4 days, and has been experiencing nausea and vomiting. No diarrhea reported. Blood work done in the emergency department demonstrates pancytopenia-all cell lines- neutropenia, with absolute neutrophil count of 500, anemia with hemoglobin of 7.6 and thrombocytopenia. Per report patient gets transfuse every 2 weeks. Chest x-ray demonstrated atelectasis versus minimal infiltrate. UA is negative for UTI. Patient not able to provide any history. He is admitted for further management. 16:26 This 80 yrs old Male presents to ER via EMS with complaints of Fever. abimael 16:26 The patient reports fever, that was measured at 100.4 degrees Fahrenheit. Onset: The abimael symptoms/episode began/occurred 2 day(s) ago. Modifying factors: there are no obvious modifying factors. Associated signs and symptoms: Pertinent positives: cough, runny nose, sinus congestion, shortness of breath. Severity of symptoms: At their worst the symptoms were mild yesterday, in the emergency department the symptoms are unchanged. The patient has not experienced similar symptoms in the past. Allergies No Known Allergies Allergy (Verified 09/01/20 22:14) Home medications list reviewed: Yes Home Medications: Allopurinol 300 mg PO DAILY 09/01/20 Aspirin [Aspirin EC] 81 mg PO DAILY 09/01/20 Metoprolol Succinate 100 mg PO BID 09/01/20 NIFEdipine [Nifedipine ER] 60 mg PO DAILY 09/01/20 Ruxolitinib Phosphate [Jakafi] 15 mg PO BID 09/01/20 danazoL [Danazol] 200 mg PO BID 09/01/20 - Past Medical/Surgical History Diabetic: No -: Myelodysplastic syndrome -: Hypertension - Social History Alcohol use: No CD- Drugs: No Caffeine use: No Place of Residence: Home Review of Systems is unable to be obtained Physical Examination Temp Pulse Resp BP Pulse Ox 99.1 F 108 H 23 H 112/57 L 93 09/02/20 12:00 09/02/20 15:45 09/02/20 15:45 09/02/20 15:45 09/02/20 15:45 General: Mild distress HEENT: Atraumatic Neck: Supple Respiratory: Clear to auscultation bilaterally Cardiovascular: No edema, Regular rate/rhythm Gastrointestinal: Soft and benign, Non-distended Musculoskeletal: No clubbing, No contractures Integumentary: No rashes, No cyanosis Neurological: Abnormal speech (Intubated) Urinary: Bustamante catheter Laboratory Data (last 24 hrs) 09/01/20 15:20: WBC 1.40 L*, Hgb 7.8 L, Hct 23.0 L, Plt Count 136 L Imagings Data: EXAM DESCRIPTION: CT - Chest Abd Pelvis Wo Con - 09/01/2020 7:53 pm CLINICAL HISTORY: DIARRHEA;Cough COMPARISON: COLON BARIUM ENEMA W AIR CONTRAST dated 05/24/2010; CHEST PA AND LAT 2 VIEW dated 05/22/2010 TECHNIQUE: Axial 5 millimeter thick images of the chest, abdomen and pelvis were obtained without IV contrast. Oral contrast was administered. All CT scans are performed using dose optimization technique as appropriate and may include automated exposure control or mA/KV adjustment according to patient size. FINDINGS: No mass the lung parenchyma. No focal consolidation to suspect bacterial pneumonia. Diffuse interstitial opacification is present. This is mostly fibrosis. Superimposed interstitial infiltrate or edema are both possible as well. Cardiomegaly is present without pericardial effusion. No pneumothorax or pleural effusion. No chest wall mass or abnormal axillary lymphadenopathy seen. Mediastinal and hilar regions show no mass or lymphadenopathy. Hepatosplenomegaly is present. Spleen is 19 cm in craniocaudal dimension. No pancreatic abnormality seen. Gallbladder and biliary tree are normal No hydronephrosis or suspicious renal mass. Isodense masses and pyelonephritis cannot be excluded on non contrast imaging. No adrenal abnormalities. No obstructing or nonobstructing calculi. Well filled urinary bladder shows no suspicious findings. No gastric dilatation or wall thickening. Small bowel loops are not dilated but multiple small bowel loops show evidence for mild wall thickening or edema. Colon is decompressed with little bowel content present. Martinez of the rectum are mildly prominent and there is congestion in the perirectal fat. No colon mass identified. No free air, free fluid or pneumatosis. No hernia, mass or bulky lymphadenopathy. The skeleton is abnormal. There is thickened trabecular pattern throughout all bony structures. No lytic or destructive process seen. The pattern is nonspecific and no additional history is available. Differential considerations include metabolic thyroid and parathyroid disease, renal osteodystrophy, myelofibrosis and Paget's disease. Sickle cell anemia is a possibility that is unlikely for this patient. Lymphoma is a differential consideration. IMPRESSION: Diffuse interstitial opacification that could be fibrosis, interstitial edema, interstitial infiltrate or a combination. No focal consolidation to suspect bacterial pneumonia. Wall thickening and edema are seen in the small bowel and colon with bowel dilation or focal mass. Nonspecific enteritis would be a consideration. Hepatosplenomegaly with increased trabecular thickening throughout the entirety of the skeleton. Differential considerations are detailed above. Myelofibrosis would be a primary consideration.No additional history detailed regarding any known metabolic or myeloproliferative disorders. EXAM DESCRIPTION: Gust Single View09/02/2020 12:54 pm CLINICAL HISTORY: Device placement/central venous catheter placement IMPRESSION: Central venous catheter with its tip in the superior vena cava No pneumothorax Endotracheal tube has its tip at the level of the mid aortic arch Conclusions/Impression: JULISA likely due to hypovolemia/ hypotension Proteinuria -Continue IVF -IVF bolus ordered AG Metabolic Acidosis Lactic Acidosis -Agree with intubatin -IVF bolus to improve hypotension/ perfusion Hypocalcemia Hypomagnesemia -Replete with IV mag Sepsis with shock -Continue Levophed -Continue IVF -1/2NS bolus X2 -Continue Cefepime and Vancomycin with renal dosing Acute respiratory failure -Intubated -Ventilatory support as ordered Myelodysplastic Syndrome Pancytopenia -SP blood transfusion -Started on Granix C.diff Colitis -Recommend IV metronidazole Thank you kindly for the consultation. Case reviewed with Dr. Sung Critical Care: Yes
[2020-09-02] MEDS ORDERED: FENTANYL CITR 100 MCG/2 ML ONE (16:28)
[2020-09-02] MEDS: NACHLORIDE 0.45% 1,000 ML IV SCH ×2 (16:45→17:55)
--- NOTE | 2020-09-02 16:47 | CON ---
Reason For Consultation: Pancytopenia, neutropenic fever. History Of Present Illness: Mr. Maldonado is an 80-year-old [place] gentleman who was admitted yesterday when he presented to the emergency room with a history of fever and chills at home. He lives at home with his and a daughter and they report that he had not been feeling well for the past 4 days and had been experiencing nausea and vomiting. They reported a fever of up to 102 Fahrenheit. He has a history of myelodysplastic syndrome, being managed at [facility]. In the ED, he was found to be neutropenic with an absolute neutrophil count of 500 in addition to a low hemoglobin and platelet count. He was hospitalized for management of neutropenic fever and possible infection. Procalcitonin and lactic acid were elevated on admission and yesterday evening, his blood pressure dropped and he was transferred to the ER ICU, where I saw him this morning. The patient is delirious and agitated and was unable to provide any history.One of his daughters was at his bedside, she speaks a little Singaporean, but most of the history was obtained from his son over the phone who speaks Singaporean well and is involved in patients treatment at [facility]. The son informs me that his father has been going to [facility] for a blood problem for the past 10 years. He is currently managed by Dr. Lainez in the Leukemia Division. 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 Initially, Mr. Maldonado would receive a transfusion every few months, then once a month and lately, it has been every 1 to 2 weeks. He was put on JAKAFI which is generally used for a myeloproliferative disorder (myelofibrosis) for the past 2 years. He was offered some sort of chemotherapy, which he declined. The son reports no history of recurrent infections or bleeding. They deny any cough or sputum or SOB. They report no abdominal pain or rectal bleeding or chris. They have not noted any rash, LN swelling or significant weight loss. He does not recall exactly when Mr. Maldonado had received growth factors including G-CSF, though he does say that he may have gotten it a couple of times in the past 10 years. Review of Systems: Otherwise as noted above. Past Medical History/surgical History: Significant for: 1. Myelofibrosis. 2. Hypertension. Current Medications: As follows: 1. Tylenol 500 mg p.o. q.4 hours for temperature more than 100. 2. Cefepime 1 g IV q.12 hours. 3. Versed 2 mg IV q.2 hours. 4. Norepinephrine drip. 5. Zofran 4 mg IV q.6 hours. 6. Propofol titrated to sedation. 7. Vancomycin 1 g IV q.36 hours. Allergies: He has no known drug allergie. Social And Family History: Mr. Maldonado lives with and a daughter at home. There is no history of smoking or drug use. There is no history of alcohol abuse. Physical Examination: Vital signs: Temperature was a 100.3 Fahrenheit at around 10 this morning. An hour, later it was 99.1F.Vital signs from 4 a.m. reveal a temperature of 98.4, pulse 103, blood pressure of 92/51. Saturating in the mid 90s on high-flow oxygen. Respirations were 24 per minute. General: Today, Mr. Maldonado is obtunded and delirious, somewhat agitated. Reveals a pale gentleman with no evidence of icterus. Skin: Reveals extensive purpura in both forearms as well as bleeding from an IV site in the left antecubital, which was discontinued. There is a line in the left subclavian, recently inserted which shows no evidence of bleeding. There was no bleeding from the Bustamante catheter site. HEENT: Reveals no mucosal bleeding and no thrush. Lymph node survey: Reveals no palpable lymphadenopathy in the neck, axilla, or groin. Chest: Clear to auscultation with scattered rales heard in all lung underwood anteriorly. No bronchial breath sound was heard. Heart: Sounds revealed normal S1, S2. No gallops or murmurs. Abdomen: Distended. Liver is palpable about 3 to 4 cm below the right subcostal margin in the midclavicular line. Spleen is palpable about 6 cm below the left subcostal margin in the midclavicular line. Bowel sounds were sluggish. No evidence of ascites was noted. Neurologic: He is obtunded. Does not respond to verbal stimulation. Agitated. Pulling at restraints. No acute focal deficit was noted. Lab Data: From this morning reveals a sodium of 145, potassium of 3.8, bicarbonate was low at 14. BUN and creatinine were 37 and 1.78 respectively. Lactic acid levels have been rising. It was 10.3 last night. Procalcitonin was elevated at 6.37. AST, ALT were elevated on admission. Bilirubin was normal. Coags show a significant jump in pro-time overnight. It was 12.6 seconds yesterday and elevated at 20.3 seconds today for an INR of 1.7. CBC done earlier today revealed a white count of 1.5 thousand; hemoglobin of 6.5 (dropped from 7.8 g/dL yesterday); platelet count was 38,000 today, a drop from 136,000 yesterday. Stool for C diff was positive, resulted today. Cultures drawn yesterday are still pending at this time. Assessment And Plan: 1. Pancytopenia. He has an existing pancytopenia, anemia, and neutropenia due to myelofibrosis per my assessment from his history and from talking to his son. His counts have dropped significantly due to acute illness i.e. sepsis and a consumptive coagulopathy. I suspect he may be developing disseminated intravascular coagulation due to infection and sepsis, which has resulted in the significant drop in platelets and elevation in pro-time. I would suggest: a. You transfuse packed red blood cells to keep his hemoglobin at 8 g/dL or higher. b. Transfuse platelets if there is significant or major bleeding and his platelet count is less than 50,000 or his platelet count is less than 20,000. c. Will start on Granix 480 mcg subcu daily for the neutropenia to try to improve his white blood count given the sepsis. 2. Neutropenic fever. Agree with cefepime and vancomycin. Will defer to primary team for treatment of Clostridium difficile colitis. a. Continue Neupogen (Granix) until he is afebrile and absolute neutrophil count is more than 2000. 3. Myelofibrosis. He has advanced myelofibrosis as evidenced by his history, hepatosplenomegaly and transfusion dependence/baseline counts. Prognosis is poor. 4. Disseminated intravascular coagulation. Would monitor PT, INR, fibrinogen in addition to the CBC daily. I would suggest a. Transfuse 10 units of cryoprecipitate if his fibrinogen is less than 100. b.Transfuse FFP 1 unit if INR is more than 1.5 and he has significant bleeding. Overall prognosis is poor. I did discuss that with his son who is his primary caregiver as far as his hematological problem is concerned. AP/MODL Voice ID: [id number] Report ID: [id number] SHAZIA
[2020-09-02] MEDS ORDERED: NACHLORIDE 0.45% 1,000 ML IV ONE ×2 (17:05→18:15)
[2020-09-02] MEDS ORDERED: D5W 1,000 ML with NA BICARB 8.4% 100 MEQ IV SCH ×2 (17:26)
[2020-09-02 17:32] LABS: Urine Appearance TURBID (Clear); Urine Blood 3+ (Negative); Urine Color ORANGE (Yellow); Urine Glucose NEGATIVE (Negative); Urine Protein 3+ (Negative); Urine Urobilinogen 0.2 mg/dL (0.2-1.0)
[2020-09-02] MEDS ORDERED: MIDAZOLAM HCL 2 MG/2 ML INJ ONE (17:40)
[2020-09-02 17:47] LABS: Hematocrit 21.2 % (39.6-49.0)
[2020-09-02 17:57] LABS: Urine Bilirubin NEGATIVE (Negative)
[2020-09-02] MEDS ORDERED: VANCOMYCIN ORAL SOLN 250 MG/5 ML OSYR FT SCH (18:00)
[2020-09-02] MEDS ORDERED: VANCOMYCIN/NS 1 gm 1 GM/250 ML BAG IVPB SCH ×3 (18:00→21:00)
[2020-09-02] MEDS: NA CHLORIDE 0.9% 1,000 ML IV ONE ×2 (18:01→19:00)
[2020-09-02 18:15] LABS: Urine Amorphous Sediment 3+ /HPF (NONE SEEN); Urine Bacteria <20 /HPF (NONE SEEN); Urine RBC 20-50 /HPF (NONE SEEN); Urine Waxy Casts 0-5 /LPF (NONE SEEN)
[2020-09-02] MEDS ORDERED: ALBUMIN HUMAN 25% 100 ML IV ONE ×2 (18:22→19:00)
--- NOTE | 2020-09-02 19:09 | P.PN ---
Subjective Date of Service: 09/02/20 Chief Complaint: Fever and chills Patient is very sick. Hemoglobin dropped to 6.5 C. diff positive. Patient still hypotensive despite aggressive IV fluid resuscitation. He developed respiratory distress and was intubated this morning. Heart rate fluctuating between rapid AFib and bradycardia. Now systolic blood pressure in the 60s despite 2 vasopressors running and maxed out on Levophed. She remained unresponsive. He is agitated and restless. Arterial blood gas shows acidosis. Bicarb level is low. Physical Examination - Vital Signs Temperature: 99.4 F Blood Pressure: 77/50 Pulse: 77 Respirations: 21 Pulse Ox (%): 95 - Physical Exam General: Unresponsive, Other (Agitated) HEENT: Atraumatic, PERRLA, Mucous membr. moist/pink Neck: Supple, JVD not distended Respiratory: Clear to auscultation bilaterally, Normal air movement Cardiovascular: No edema, Normal S1 S2, No murmurs, Irregular heart rate/rhythm Gastrointestinal: Normal bowel sounds, Soft and benign, Non-distended, Tenderness Musculoskeletal: No clubbing, No swelling, No erythema Integumentary: No rashes, No erythema Neurological: Other (Unresponsive, moves all extremities spontaneously.) - Studies Laboratory Data (last 24 hrs) 09/01/20 15:20: WBC 1.40 L* Microbiology Data (last 24 hrs): 09/01/20 15:20 Blood - Blood Blood Culture Gram Stain - Final 09/01/20 15:20 Blood - Blood Gram Stain - Final 09/01/20 15:35 Blood - Blood Blood Culture Gram Stain - Final 09/01/20 15:35 Blood - Blood Gram Stain - Final Assessment And Plan - Current Problems (Diagnosis) (1) Neutropenic fever Current Visit: Yes Status: Acute (2) Pneumonia Current Visit: Yes Status: Acute (3) Sepsis Current Visit: Yes Status: Acute (4) Myelodysplastic syndrome Current Visit: Yes Status: Acute (5) Septic shock Current Visit: Yes Status: Acute (6) Lactic acidosis Current Visit: Yes Status: Acute (7) Metabolic acidosis Current Visit: Yes Status: Acute (8) C. difficile colitis Current Visit: Yes Status: Acute (9) Acute metabolic encephalopathy Current Visit: Yes Status: Acute (10) Acute renal failure Current Visit: Yes Status: Acute (11) Pancytopenia Current Visit: Yes Status: Acute - Plan Nephrology and Hematology input appreciated. Continue current IV antibiotics-cefepime and vancomycin. Patient started on oral vancomycin for C. diff. Patient given several boluses of normal saline but still hypotensive. Now on 2 vasopressors with systolic blood pressure in the 60s. Give albumin infusion. Status post 1 unit PRBC transfusion. Posttransfusion hemoglobin is up to 7. Dr. Becerra recommend target hemoglobin greater than 8. Monitor CBC to follow WBC and platelet. NG-tube placed. Follow cultures. Bicarb drip for metabolic acidosis Continue to monitor lactic acid. Poor prognosis. I had a conversation with the son and made him aware of patient's poor prognosis. Patient has an advanced directive that states if his condition is terminal would like only comfort measures and no life-sustaining treatment. I discussed DNR with the son. Son will discuss with patient's and make a decision on DNR. Until then he is full code.
[2020-09-02] MEDS ORDERED: NA CHLORIDE 0.9% 250 ML IV SCH (21:00)
[2020-09-02] MEDS ORDERED: NA CHLORIDE 0.9% 250 ML ONE (21:04)
[2020-09-02] MEDS ORDERED: CEFEPIME/SWI 1gm 10 ML ONE (21:04)
[2020-09-02] MEDS ORDERED: NA CHLORIDE 0.9% 250 ML IV PRN (22:24)
[2020-09-02 22:53] VITALS: TEMP 98
[2020-09-02 23:14] VITALS: O2SAT 95
[2020-09-03] MEDS ORDERED: CALCIUM GLUC 10% INJ 9.3 MEQ in NA CHLORIDE 0.9% 100 ML IV ONE ×2
[2020-09-03 01:05] VITALS: BP 45/16
[2020-09-03] MEDS ORDERED: CLINDAMYCIN 600MG/D5W 0 MG/0 ML BAG IV ONE (04:52)
--- NOTE | 2020-09-03 10:29 | EKG ---
Test Date: 2020-09-01 Test Time: 14:59:20 Marketing Operations Intern: JOSE LUIS MEASUREMENT RESULTS: Intervals: Rate: 90 [place]: 154 QRSD: 136 QT: 370 QTc: 452 [place]: P: 52 [place]: 154 QRS: 3 T: 78 INTERPRETIVE STATEMENTS: Sinus rhythm with marked sinus arrhythmia Possible Left atrial enlargement Right bundle branch block Abnormal ECG No previous ECG available for comparison Electronically Signed On 09-03-20 10:25:56 CDT by Ben Baltazar
--- NOTE | 2020-09-03 18:45 | P.DS ---
Admission Date: 09/01/20 Discharge Date: 09/03/20 Disposition: Discharge Condition: Reason for Admission: Fever and chills - Problems (1) Neutropenic fever Status: Acute (2) Pneumonia Status: Acute (3) Sepsis Status: Acute (4) Myelodysplastic syndrome Status: Acute (5) Septic shock Status: Acute (6) Lactic acidosis Status: Acute (7) Metabolic acidosis Status: Acute (8) C. difficile colitis Status: Acute (9) Acute metabolic encephalopathy Status: Acute (10) Acute renal failure Status: Acute (11) Pancytopenia Status: Acute Brief History of Present Illness: 80-year-old gentleman with a history of myelodysplastic syndrome was brought to the emergency department due to an episode of fever and chills at home. Per report patient has not been eating well for the past 4 days, and has been experiencing nausea and vomiting. No diarrhea reported. Blood work done in the emergency department demonstrates pancytopenia-all cell lines- neutropenia, with absolute neutrophil count of 500, anemia with hemoglobin of 7.6 and thrombocytopenia. Per report patient gets transfuse every 2 weeks. Chest x-ray demonstrated atelectasis versus minimal infiltrate. UA is negative for UTI. Patient not able to provide any history. He is admitted for further management. Hospital Course: Patient admitted to the medical floor and treated aggressively for sepsis with IV antibiotics and aggressive IV hydration. He developed septic shock, became unresponsive, and agitated. He was transferred to the ICU where patient clinical condition continued to worsen. He was started on Levophed for hypotension after several boluses of normal saline. He was intubated for respiratory distress. His stool tested positive for C. diff. Patient diagnosed with C. diff colitis. He was transfused 2 units PRBC and for hemoglobin of 6.5. Surgery consulted and central line placed. Patient was subsequently hypotensive given with 2 vasopressors. Goals of care discussed with the son and the . Patient had an advanced directive which stated no life-sustaining measures if his condition is terminal. Patient's son requested all aggressive measures but later during the course of the night requested for DNR. Patient clinical condition worsened despite aggressive treatment. He developed asystole and Vital Signs/Physical Exam: Temp Pulse Resp BP Pulse Ox 98 F 54 17 45/16 L 0 L 09/02/20 20:00 09/02/20 23:45 09/02/20 23:45 09/02/20 23:45 09/02/20 23:45 Laboratory Data at Discharge: WBC Cancelled 09/03/20 05:00 Hgb Cancelled 09/03/20 05:00 Hct Cancelled 09/03/20 05:00 Plt Count Cancelled 09/03/20 05:00 PT Cancelled 09/03/20 05:00 INR Cancelled 09/03/20 05:00 APTT Cancelled 09/03/20 00:30 Sodium Cancelled 09/03/20 05:00 Potassium Cancelled 09/03/20 05:00 BUN Cancelled 09/03/20 05:00 Creatinine Cancelled 09/03/20 05:00 Glucose Cancelled 09/03/20 05:00 Phosphorus 4.3 mg/dL (2.5-4.9) 09/02/20 05:52 Magnesium Cancelled 09/03/20 05:00 Total Bilirubin 0.4 mg/dL (0.2-1.0) 09/01/20 15:20 AST 78 U/L (15-37) H 09/01/20 15:20 ALT 109 U/L (12-78) H 09/01/20 15:20 Alkaline Phosphatase 124 U/L (45-117) H 09/01/20 15:20 Amylase 95 U/L (25-115) 09/01/20 15:20 Lipase 111 U/L (73-393) 09/01/20 15:20 Home Medications: Allopurinol 300 mg PO DAILY 09/01/20 Aspirin [Aspirin EC] 81 mg PO DAILY 09/01/20 Metoprolol Succinate 100 mg PO BID 09/01/20 NIFEdipine [Nifedipine ER] 60 mg PO DAILY 09/01/20 Ruxolitinib Phosphate [Jakafi] 15 mg PO BID 09/01/20 danazoL [Danazol] 200 mg PO BID 09/01/20 Followup: OOTOOT [Primary Care Provider] -
--- NOTE | 2020-09-06 16:16 | EKG ---
Test Date: 2020-09-02 Test Time: 16:52:54 Material Handling Equipment [employer]: MEASUREMENT RESULTS: Intervals: Rate: 127 [place]: QRSD: 108 QT: 434 QTc: 630 [place]: P: [place]: QRS: 12 T: 34 INTERPRETIVE STATEMENTS: Atrial fibrillation with rapid ventricular response with premature ventricular or aberrantly conducted complexes Low voltage QRS Right bundle branch block Possible Lateral infarct, age undetermined Abnormal ECG Compared to ECG 09/01/2020 14:59:20 Ventricular premature complex(es) now present Low QRS voltage now present Myocardial infarct finding now present Sinus rhythm no longer present Sinus arrhythmia no longer present Electronically Signed On 09-06-20 16:09:17 CDT by Ben Baltazar
--- NOTE | 2020-09-06 16:16 | EKG ---
Test Date: 2020-09-02 Test Time: 16:55:01 Ichthyologist: MG MEASUREMENT RESULTS: Intervals: Rate: 153 [place]: QRSD: 116 QT: 348 QTc: 555 [place]: P: [place]: QRS: 23 T: -11 INTERPRETIVE STATEMENTS: Atrial fibrillation with rapid ventricular response Right bundle branch block Possible Lateral infarct, age undetermined Abnormal ECG Compared to ECG 09/02/2020 16:52:54 Ventricular premature complex(es) no longer present Myocardial infarct finding still present Electronically Signed On 09-06-20 16:09:16 CDT by Ben Baltazar
== END 2020-09-03 01:45 | disposition expired | DRG 871 ==
LOC: ER 14:47 → ERHOLD 17:49 → 4TH 20:41 → ERHOLD 09-02 08:30
PROVIDERS: ADMIT Internal Medicine; ATTEND Internal Medicine
PROC: 30233N1 Transfusion of Nonautologous Red Blood Cells into Peripheral Vein, Percutaneous Approach (ICD-10-PCS; principal; 2020-09-02)
PROC: 0BH17EZ Insertion of Endotracheal Airway into Trachea, Via Natural or Artificial Opening (ICD-10-PCS; 2020-09-02)
PROC: 5A1935Z Respiratory Ventilation, Less than 24 Consecutive Hours (ICD-10-PCS; 2020-09-02)
PROC: 05H633Z Insertion of Infusion Device into Left Subclavian Vein, Percutaneous Approach (ICD-10-PCS; 2020-09-02)
DX: A41.9 Sepsis, unspecified organism (principal); R65.21 Severe sepsis with septic shock; G93.41 Metabolic encephalopathy; J96.00 Acute respiratory failure, unspecified whether with hypoxia or hypercapnia; J18.9 Pneumonia, unspecified organism; D65 Disseminated intravascular coagulation [defibrination syndrome]; E43 Unspecified severe protein-calorie malnutrition; A04.72 Enterocolitis due to Clostridium difficile, not specified as recurrent; N17.9 Acute kidney failure, unspecified; E87.2 Acidosis; D61.818 Other pancytopenia; R64 Cachexia; E83.51 Hypocalcemia; E83.42 Hypomagnesemia; D46.9 Myelodysplastic syndrome, unspecified; D70.9 Neutropenia, unspecified; R50.81 Fever presenting with conditions classified elsewhere; I10 Essential (primary) hypertension; Z68.21 Body mass index [BMI] 21.0-21.9, adult; Z20.822 Contact with and (suspected) exposure to COVID-19
CPT/HCPCS: 36415; 36430; 71045; 71250; 74176; 80048; 80076; 81001; 81003; 81015; 82150; 82274; 82435; 82550; 82553; 82570; 82805; 82947; 83605; 83690; 83735; 84100; 84132; 84145; 84300; 84484; 85014; 85018; 85025; 85610; 85730; 86850; 86900; 86901; 87040; 87045; 87046; 87077; 87086; 87088; 87186; 87205; 87324; 87449; 89055; 93005; 94003; 94760; 99285; J0330; J0610; J0692; J1447; J1630; J2250; J2370; J3010; J3370; J3475; J7030; J7040; J7050; J7060; P9016; P9040; P9047; U0003